=== PATIENT | male | born 1945 | race Caucasian/White ===

== ENCOUNTER 2024-08-18 11:56 | Emergency (ER) | payer BC ==
[~2024-08-18] VITALS: Ht 162.6 cm; Wt 59.0 kg
[2024-08-18] MEDS ORDERED: ACETAMINOPHEN 500 MG TABLET ONE (12:54)
[2024-08-18] MEDS: ACETAMINOPHEN 500 MG TABLET PO ONE (12:57)
[2024-08-18 13:48] VITALS: BP 140/78; O2SAT 98
== END 2024-08-18 13:49 | disposition home or self-care (01) ==
LOC: ER 12:14
DX: S09.8XXA Other specified injuries of head, initial encounter (principal); M50.31 Other cervical disc degeneration, high cervical region; W01.0XXA Fall on same level from slipping, tripping and stumbling without subsequent striking against object, initial encounter; Y93.89 Activity, other specified; Y92.89 Other specified places as the place of occurrence of the external cause; Y99.8 Other external cause status
CPT/HCPCS: 70450; 72125; A4606; A4663; A9150

== ENCOUNTER 2024-09-21 14:10 | Emergency (ER) | payer BC ==
[~2024-09-21] VITALS: Ht 165.1 cm; Wt 59.0 kg
[2024-09-21] MEDS ORDERED: SULF1TAB48 PO (15:44)
[2024-09-21] MEDS ORDERED: BACITRACIN ZINC OINT 15 GM TUBE ONE (15:51)
[2024-09-21] MEDS: BACITRACIN ZINC OINT 15 GM TUBE TOP ONE (16:00)
[2024-09-21 16:19] VITALS: BP 133/87; TEMP 97.8; O2SAT 99
== END 2024-09-21 16:00 | disposition home or self-care (01) ==
LOC: ER 14:10
DX: L02.611 Cutaneous abscess of right foot (principal); M79.674 Pain in right toe(s); E78.5 Hyperlipidemia, unspecified; M19.90 Unspecified osteoarthritis, unspecified site
CPT/HCPCS: A4606; A4663

== ENCOUNTER 2024-11-25 21:32 | Emergency (ER) | payer BC ==
[~2024-11-25] VITALS: Ht 165.1 cm; Wt 59.0 kg
[~2024-11-25 21:32] MED LIST: SULF1TAB48 PO
[2024-11-25 21:37] VITALS: BP 155/72
[2024-11-25] MEDS ORDERED: LIDOCAINE HCL 1% 20 ML VIAL ONE (21:59)
[2024-11-25] MEDS ORDERED: CEFTRIAXONE 1 G VIAL ONE (21:59)
[2024-11-25] MEDS: CEFTRIAXONE 1 G VIAL IM ONE (22:13)
[2024-11-25 22:38] VITALS: BP 145/78; O2SAT 97
== END 2024-11-25 22:39 | disposition left against medical advice (07) ==
LOC: ER 21:32
DX: T81.31XA Disruption of external operation (surgical) wound, not elsewhere classified, initial encounter (principal); E78.5 Hyperlipidemia, unspecified; M19.90 Unspecified osteoarthritis, unspecified site; Y84.8 Other medical procedures as the cause of abnormal reaction of the patient, or of later complication, without mention of misadventure at the time of the procedure; Y92.89 Other specified places as the place of occurrence of the external cause
CPT/HCPCS: 99283; 96372; J0696; J3490; A4606; A4663

== ENCOUNTER 2025-02-15 11:32 | Emergency (ER) | payer BC ==
[~2025-02-15] VITALS: Ht 165.1 cm; Wt 59.0 kg
[2025-02-15 11:33] VITALS: BP 145/88
[2025-02-15 13:12] VITALS: BP 145/88; O2SAT 97
== END 2025-02-15 13:12 | disposition home or self-care (01) ==
LOC: ER 11:32
DX: S00.83XA Contusion of other part of head, initial encounter (principal); I51.9 Heart disease, unspecified; E78.5 Hyperlipidemia, unspecified; M19.90 Unspecified osteoarthritis, unspecified site; W01.0XXA Fall on same level from slipping, tripping and stumbling without subsequent striking against object, initial encounter; Y93.89 Activity, other specified; Y92.89 Other specified places as the place of occurrence of the external cause; Y99.9 Unspecified external cause status
CPT/HCPCS: 70450; A4606; A4663